=== PATIENT | male | born 1995 | race Caucasian/White ===

== ENCOUNTER 2016-11-13 12:54 | Emergency (ER) ==
[2016-11-13 13:04] VITALS: BP 131/87; TEMP 99.1; BMI 24.4
--- NOTE | 2016-11-13 13:08 | ED.PDOC ---
General ED Provider: Dr. KAYLYNN ESCALONA Chief Complaint: Allergic Reaction Stated Complaint: [place] in [place], accidentally stepped in wasp nest. Stung multiple times on left ankle, once on buttocks, & once of abdomen. Shortly afterward, began itching all over, noticed his face was swollen and his throat began to close. He became nauseated and vomitted several times. EMS called. On Arrival they gave him IM steroids, po Zofran, and albuterol neb treatments x2. On arrival here all symptoms had subsided except mild pain in medial right ankle. Time Seen by Physician: 13:00 Mode of Arrival: Ambulance Information Source: Patient, EMT Exam Limitations: No limitations Nursing and Triage Documentation Reviewed and Agree: Yes Environmental Complaint Exam - Allergic Reaction Complaint/Exam Onset/Duration: 1 hr Symptoms Are: Resolved Timing: Constant Initial Severity: Severe Current Severity: Mild Location: Diffuse Character: Present: Pruritis (facial swelling, nausea/vomitting, throat closing) Aggravating: Reports: None Alleviating: Reports: Other (Meds given by poultry trimmer: solumedrol, zofran, & albuterol elin tx) Associated Signs and Symptoms: Reports: Difficulty breathing, Throat tightening , Nausea, Vomiting Possible Reaction To: Reports: Insect Diphenhydramine Prior to Arrival: No Epinephrine Auto Injector Prior to Arrival: No Respiratory Distress: Mild Findings: Present: Macular rash (erythema about right medial ankle with multiple insect sting sites) Differential Diagnoses: Anaphylaxis Review of Systems - Review Of Systems Constitutional: Reports: No symptoms Eyes: Reports: No symptoms Ears, Nose, Mouth, Throat: Reports: Mouth swelling, Throat swelling Respiratory: Reports: No symptoms Cardiac: Reports: No symptoms GI: Reports: Nausea, Vomiting : Reports: No symptoms Skin: Reports: Rash (erythema on right medial ankle with multiple insect bites) Neurological: Reports: No symptoms All Other Systems: Reviewed and Negative Past Medical History - Past Medical History Previously Healthy: Yes Endocrine: Reports: None Cardiovascular: Reports: None Respiratory: Reports: None Hematological: Reports: None Gastrointestinal: Reports: None Genitourinary: Reports: None Neuro/Psych: Reports: Depression Musculoskeletal: Reports: None Cancer: Reports: None - Surgical History General Surgical History: Reports: None - Family History Family History: Reports: None Physical Exam - Physical Exam Appearance: Well-appearing, No pain distress, Well-nourished Ill-appearing: None Pain Distress: None Eyes: HIRAL, EOMI, Conjunctiva clear ENT: Ears normal, Nose normal, Oropharynx normal Respiratory: Airway patent, Breath sounds clear, Breath sounds equal, Respirations nonlabored Cardiovascular: RRR, Pulses normal, No rub, No murmur GI/: Soft, Nontender, No masses, Bowel sounds normal, No Organomegaly Musculoskeletal: Normal strength, ROM intact, No edema, No calf tenderness Skin: Warm, Dry, Normal color Neurological: Sensation intact, Motor intact, Reflexes intact, Cranial nerves intact, Alert, Oriented Psychiatric: Affect appropriate, Mood appropriate Re-Evaluation - Re-Evaluation Time of Re-Evaluation: 14:36 Status: Unchanged Vital Signs Stable: Yes Pain Level: 0 Appearance: NAD Lungs: Clear Skin: Warm and Dry Neuro: Alert and Oriented X3 CV: RRR Critical Care Note - Critical Care Note Total Time (mins): 0 Course - Course Orders, Labs, Meds: Orders Category Date Time Status Diphenhydramine Inj [Benadryl] MEDS 11/13/16 13:14 Discontinued 25 mg IM ONCE STA Medications Discontinued Medications Generic Name Dose Route Start Last Admin Trade Name Freq PRN Reason Stop Dose Admin Diphenhydramine HCl 25 mg 11/13/16 13:14 11/13/16 13:22 Benadryl IM 11/13/16 13:15 25 mg ONCE STA Administration Vital Signs: Temp Pulse Resp BP Pulse Ox 11/13/16 12:55 99.1 F 106 H 22 131/87 94 L Departure - Departure Time of Disposition: 14:37 Disposition: HOME SELF-CARE Discharge Problem: Anaphylactic reaction Instructions: Insect Bite or Sting (ED) Condition: Good Pt referred to PMD for follow-up: No (see PCP if symptoms recur) Allergies/Adverse Reactions: Allergies hornet venom Adverse Reaction (Verified 11/13/16 13:08) Home Medications: Ambulatory Orders Bupropion HCl [Bupropion Xl] 1 tab PO DAILY 11/13/16 Disposition Discussed With: Patient
[2016-11-13] MEDS ORDERED: BENADRYL IM STA (13:14)
== END 2016-11-13 14:41 | disposition home or self-care (01) ==
LOC: ED 12:54
DX: T63.461A Toxic effect of venom of wasps, accidental (unintentional), initial encounter (principal); T78.2XXA Anaphylactic shock, unspecified, initial encounter; R60.0 Localized edema; L29.9 Pruritus, unspecified; R11.2 Nausea with vomiting, unspecified
CPT/HCPCS: 96372; 99282